=== PATIENT | female | born 1955 | race Caucasian/White ===

== ENCOUNTER → 2020-04-08 | Outpatient (CLI) | payer OTHER | LOC: SJCVCIMAG 08:21 | PROVIDERS: ATTEND Internal Medicine Cardiovascular Disease | DX: I35.1 Nonrheumatic aortic (valve) insufficiency (principal); I70.202 Unspecified atherosclerosis of native arteries of extremities, left leg; R94.31 Abnormal electrocardiogram [ECG] [EKG]; I77.1 Stricture of artery; I25.9 Chronic ischemic heart disease, unspecified; I25.10 Atherosclerotic heart disease of native coronary artery without angina pectoris; I10 Essential (primary) hypertension; R06.09 Other forms of dyspnea; R53.83 Other fatigue; R93.41 Abnormal radiologic findings on diagnostic imaging of renal pelvis, ureter, or bladder ==

== ENCOUNTER → 2020-04-15 | Outpatient (CLI) | payer OTHER ==
[~2020-04-15] VITALS: Ht 157.5 cm; Wt 65.8 kg
[~2020-04-15] MED LIST: ASPIRIN EC81 M1 PO; BYSTOLIC10 MG PO; CALCIUM500 MG PO; CRESTOR10 MG PO; EDARBI40 MG PO; MULTIVITAMINS1 EAC7 PO; PENTOXIFYLLINE400 MG PO; VITAMIN D325 MC3 PO; XANAX 0.5 MG0.5 M1 PO; ZESTRIL40 MG PO; [UNRECOGNIZED DRUG - OTHER] TOP
--- NOTE | 2020-04-15 08:56 | EKG ---
[facility] [place]bi [place] [address] ELECTROCARDIOGRAM REPORT Name: MERON ROBB Room #: [facility]#: [id number] Admission: 04/15/20 Attend Phys: Babatunde Proctor MD, Discharge: Date of : 55 Report #: [id number] THIS REPORT FOR: cc: Oleksandr Parsons MD, Michael D. 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 : 1955 Requested By: Babatunde Proctor Order Number: [id number] MD: Eliu Raymundo Measurements Intervals [place] Rate: 80 P: 48 [place]: 157 QRS: -72 QRSD: 142 T: 5 QT: 415 QTc: 479 Interpretive Statements Sinus rhythm Probable left atrial enlargement Right bundle branch block Inferior infarct, old No previous ECG available for comparison Electronically Signed On 04-15-2020 8:56:35 CDT by Eliu Raymundo [email or web address] <ELECTRONICALLY SIGNED> By: Eliu Raymundo MD, [facility] 04/15/20 0856 [id number] Eliu Raymundo MD, [facility] /EPI
[2020-04-15 09:12] VITALS: BP 157/79
[2020-04-15 09:12] LABS: HEMATOCRIT 41.5 % (37.0-47.0); HEMOGLOBIN 13.9 gm/dL (12.0-15.0); MCH 33.1 pg (26.0-34.0); MCHC 33.6 g/dL (28.0-37.0); MCV 98.7 fL (80.0-100.0); RBC 4.21 mil/uL (4.20-5.00); WBC 7.7 thou/uL (4.0-11.0)
[2020-04-15 09:20] VITALS: BP 157/79
[2020-04-15 09:32] LABS: CALCIUM 8.8 mg/dL (8.5-10.1); POTASSIUM 4.3 mmol/L (3.5-5.1)
--- NOTE | 2020-04-17 15:08 | CATHLAB ---
[facility] [place] [address] INVASIVE PROCEDURE REPORT Name: MERON ROBB Room #: [facility] JIN ParksGeorge#: [id number] Admission: 04/15/20 Attend Phys: Babatunde Proctor MD, Discharge: Date of : 55 Report #: [id number] THIS REPORT FOR: cc: Oleksandr Parsons MD, Michael D. MD Mancuso, Gerald M. MD [facility] ~ APPROVED REPORT Study performed: 04/15/2020 10:06:40 Patient Details Patient Status: Out-Patient Room #: The patient is a 64 year-old female Event Personnel Babatunde Proctor Ehr Trainer, Kimberlyn Palmer RN, Annie Fernandez RTR, PRICING STRATEGIST Monitor, Sowmya Corcoran Scrub, Tiago Kumar RTR Scrub Procedures Performed Art Access - R femoral artery* Left Heart Cath w/or w/o Coronaries [id number] [facility] Renal Bilateral Peripheral Angiography [id number] CVRENALBIL Hemostasis w/ Mynx , 80631 Initial Mod Sed Same Phys/QHP Gr5y [id number] 99875 Mod Sed Same Phys/QHP Ea [id number] Indication Positive stress test Procedure Narrative The Right Groin^ was infiltrated with 1% Lidocaine subcutaneous anesthesia. A PINNACLE 6FR Sheath #[id number] sheath was inserted into the RFA^. Coronary angiography was performed using coronary diagnostic catheters. The right coronary system was accessed and visualized with a JR4 catheter. The left coronary system was accessed and visualized with a JL4 catheter. The left ventricle was accessed and visualized with a PIGTAIL catheter. Left ventriculogram was performed in 30 degree projection. An aortogram of the abdominal aorta was performed. Pre-demployment femoral angiogram was performed . Closure device was deployed with a 6 Fr MYNXGRIP 6/7F #[id number]. The patient tolerated the procedure well and there were no complications associated with the procedure. There was no hematoma. Intraoperative Conscious Sedation Sedation start time: 11:14 Case end Time: [facility] [address] [place] [address] INVASIVE PROCEDURE REPORT Name: MERON ROBB [id number] Admission: 04/15/20 Attend Phys: Babatunde Proctor, Discharge: Date of : 55 Report #: [id number] 11:51 Fentanyl 50 mcg Versed 1 mg Fluoro Time: 2.30 minutes Dose: DAP 4314.50 cGycm2 568 mGy Contrast Type and Amount: Visipaque 115 ml Hemodynamics The aortic pressure is 181/76 mmHg with a mean of 113 mmHg. The left ventricular pressure is 172/5 mmHg with a mean of mmHg. The left ventricular end diastolic pressure is 18 mmHg. Conclusion #1. Normal left jugular size and systolic function EF 60% #2 abdominal aortogram has significant calcification some mild tortuosity and moderate bilateral iliac disease. #3 left main mildly calcified widely patent giving rise to LAD and circumflex #4 LAD also moderately calcified without occlusive disease extends to the apex. Moderate size diagonal branch also widely patent #5 circumflex OM nondominant with mild irregularities. No occlusive disease. #6 dominant right coronary artery with a small to moderate caliber. Eccentric mid vessel lesion approaching 75% with moderate disease distal to the segment. Does not appear to be flow-limiting and filling a small to moderate size PDA which is widely patent. #7 left renal artery and right renal are selectively injected have mild ostial disease and calcification no high-grade stenosis Recommendations and plan: Continue aggressive risk factor modification. Will add beta-olayinka. Okay to proceed with breast surgery lumpectomy and node dissection. Will consider intervention into mid RCA at a later date after breast cancer situation has stabilized. Her surgery is relatively low risk. <ELECTRONICALLY SIGNED> By: Babatunde Proctor MD, FACC 04/17/20 1508 1508 1508 Babatunde Proctor MD, FACC /INF
== END | disposition home or self-care (01) ==
LOC: CATH 07:57
PROVIDERS: ATTEND Internal Medicine Cardiovascular Disease
DX: I25.10 Atherosclerotic heart disease of native coronary artery without angina pectoris (principal); I70.1 Atherosclerosis of renal artery; I70.0 Atherosclerosis of aorta; I10 Essential (primary) hypertension; E78.5 Hyperlipidemia, unspecified; J44.9 Chronic obstructive pulmonary disease, unspecified; M19.90 Unspecified osteoarthritis, unspecified site; F41.9 Anxiety disorder, unspecified; F17.210 Nicotine dependence, cigarettes, uncomplicated; Z98.890 Other specified postprocedural states; Z79.899 Other long term (current) drug therapy; Z79.82 Long term (current) use of aspirin; Z85.3 Personal history of malignant neoplasm of breast

== ENCOUNTER → 2020-10-02 | Outpatient (CLI) | payer OTHER | LOC: SJCVCIMAG 07:32 | PROVIDERS: ATTEND Internal Medicine Cardiovascular Disease | DX: I45.10 Unspecified right bundle-branch block (principal); I10 Essential (primary) hypertension; J44.9 Chronic obstructive pulmonary disease, unspecified; E78.5 Hyperlipidemia, unspecified; I25.10 Atherosclerotic heart disease of native coronary artery without angina pectoris; I73.9 Peripheral vascular disease, unspecified; E78.00 Pure hypercholesterolemia, unspecified; Z79.82 Long term (current) use of aspirin; Z79.899 Other long term (current) drug therapy; Z72.89 Other problems related to lifestyle; Z87.891 Personal history of nicotine dependence ==